=== PATIENT | female | born 1990 | race Caucasian/White ===

== ENCOUNTER 2021-09-10 07:05 | Emergency (ER) | payer MEDICAID ==
[~2021-09-10] VITALS: Ht 165.1 cm; Wt 72.0 kg
[2021-09-10] MEDS ORDERED: HYDROCODONE/ACETAMINOPHEN 5/325MG TABLET PO ONE (10:15)
[2021-09-10] MEDS ORDERED: ASPIRIN 81MG TABLET PO ONE (10:15)
[2021-09-10 11:07] LABS: BASOPHILS % 0.5 % (0.0-2.0); EOSINOPHILS % 0.5 % (0.0-5.0); HEMATOCRIT. 44.2 % (36.0-48.0); HEMOGLOBIN. 14.9 g/dL (12.0-16.0); LYMPHOCYTES % 16.2 % (20.0-50.0); MEAN CORPUSCULAR HEMOGLOBIN 28.6 pg (28.0-32.0); MEAN CORPUSCULAR VOLUME 84.8 fL (81.0-99.0); MEAN PLATELET VOLUME 7.6 fl (7.4-10.4); MONOCYTES % 9.1 % (2.0-8.0); NEUTROPHILS % 73.7 % (40.0-76.0); PLATELET 357 x1000/uL (130-400); RED BLOOD CELL COUNT 5.21 mill/uL (4.2-5.4); RED CELL DISTRIBUTION WIDTH 12.5 % (11.6-14.6)
[2021-09-10 11:11] LABS: CHLORIDE 93 mEq/L (98-107)
[2021-09-10] MEDS ORDERED: ALBUTEROL (0.083%) 2.5MG/3ML NEB HHN STA (11:19)
[2021-09-10] MEDS ORDERED: IPRATROPIUM BROMIDE (0.02%) 0.5MG/2.5ML NEB HHN STA (11:19)
[2021-09-10] MEDS ORDERED: SODIUM CHLORIDE 0.9% 1,000 ML IV ONE (12:00)
[2021-09-10] MEDS ORDERED: INSULIN REGULAR (HUMULIN R) 300UNITS/3ML VIAL SUBCUT ONE (12:00)
[2021-09-10 12:34] LABS: HCG SCREEN NEGATIVE
[2021-09-10] MEDS ORDERED: IOHEXOL-350 100 ML BOTTLE ONE (16:23)
[2021-09-10] MEDS ORDERED: INSULIN REGULAR (HUMULIN R) 300UNITS/3ML VIAL SUBCUT NR (17:30)
[2021-09-10] MEDS ORDERED: GABA-529 MT (18:06)
[2021-09-10] MEDS ORDERED: VALA100044 MT (18:06)
[2021-09-10] MEDS ORDERED: ALBU6.7H15 INH (18:06)
[2021-09-10] MEDS ORDERED: IPRATROPIUM BROMIDE (0.02%) 0.5MG/2.5ML NEB ONE (18:12)
[2021-09-10] MEDS ORDERED: ALBUTEROL (0.083%) 2.5MG/3ML NEB ONE (18:13)
[2021-09-10 18:32] VITALS: BP 128/82
== END 2021-09-10 19:03 | disposition home or self-care (01) ==
LOC: ER 07:05
DX: B02.9 Zoster without complications (principal); R07.89 Other chest pain; R06.2 Wheezing; G89.29 Other chronic pain; M54.50 Low back pain, unspecified; E11.9 Type 2 diabetes mellitus without complications; F17.210 Nicotine dependence, cigarettes, uncomplicated; Z97.5 Presence of (intrauterine) contraceptive device; Z98.890 Other specified postprocedural states
CPT/HCPCS: 36415; 71045; 71275; 80053; 81025; 82962; 83880; 84484; 84703; 85025; 85379; 93005; 94644; 96372; 99284; J1815; J7030; Q9967; Z7610